=== PATIENT | male | born 1955 | race Caucasian/White ===

== ENCOUNTER → 2019-12-22 19:04 | Outpatient (BNVA) | payer MEDICARE, BC, SELFPAY | PROVIDERS: Family Provider Nurse Practitioner; PCP Nurse Practitioner; Visit Provider Nurse Practitioner Family | DX: Z20.828 Contact with and (suspected) exposure to other viral communicable diseases (principal) | CPT/HCPCS: 87635 ==

== ENCOUNTER → 2020-07-13 08:38 | Outpatient (BNVA) | payer MEDICARE, BC, SELFPAY | PROVIDERS: Family Provider Nurse Practitioner; PCP Nurse Practitioner; Visit Provider Nurse Practitioner Family | DX: R53.83 Other fatigue (principal); Z79.899 Other long term (current) drug therapy; N40.0 Benign prostatic hyperplasia without lower urinary tract symptoms; E55.9 Vitamin D deficiency, unspecified; Z00.00 Encounter for general adult medical examination without abnormal findings | CPT/HCPCS: 80053; 81003; 82306; 83036; 84443; 85025; G0103 ==

== ENCOUNTER → 2020-07-31 08:10 | Outpatient (BNVA) | payer MEDICARE, SELFPAY | PROVIDERS: Family Provider Nurse Practitioner; PCP Nurse Practitioner; Visit Provider Nurse Practitioner Family | DX: Z01.812 Encounter for preprocedural laboratory examination (principal); Z12.11 Encounter for screening for malignant neoplasm of colon; Z13.6 Encounter for screening for cardiovascular disorders; Z20.822 Contact with and (suspected) exposure to COVID-19 | CPT/HCPCS: 80061; 87635 ==

== ENCOUNTER 2020-08-03 08:30 | Day surgery (SDC) | payer MEDICARE, SELFPAY ==
[2020-08-01 11:40] VITALS: BMI 36.9
[2020-08-03 08:48] VITALS: BP 115/89; PULSE 86; RESP 16; TEMP 36.3; O2SAT 95
[2020-08-03] MEDS: sodium chloride 0.9% 1,000 ML 30 ML IV (09:02)
--- NOTE | 2020-08-03 09:04 | P.HP_ITS ---
Same Day Surgery H&P Indication for Procedure/HPI DATE OF PROCEDURE: August 03, 2020 CHIEF COMPLAINT/INDICATIONFOR SURGICAL PROCEDURE: Routine screening average risk. PREOP DIAGNOSIS: scr PLANNED PROCEDRUE: Operation Date: 08/03/20 09:30 Proposed Procedures p Colonoscopy G0121 Z12.11(Not Applicable) - Reinaldo Wilson MD Medications/Allergies* Home Medications Medication Instructions Recorded Confirmed Type aspirin 81 mg tablet,delayed 81 mg PO DAILY 12/22/19 08/03/20 History release cetirizine 10 mg capsule 10 mg PO DAILY PRN cap 12/22/19 08/03/20 History Allergies/Adverse Reactions Allergy/AdvReac Type Severity Reaction Status Date / Time No Known Allergies Allergy Verified 08/03/20 08:46 Current Medications: Generic Name Dose Route Start Last Admin Trade Name Freq PRN Reason Stop Dose Admin Sodium Chloride 1,000 mls @ 30 mls/hr 08/03/20 08:45 08/03/20 09:02 Sodium Chloride 0.9% IV 08/04/20 08:44 30 mls/hr .Q24H DIANE Administration Pertinent History/Comorbid Conditions* Medical History (Updated 07/12/20 @ 09:11 by SOSA Perera) BPH (benign prostatic hyperplasia) Colon cancer screening Fatigue History of diverticulitis Medication management Osteoarthritis (arthritis due to wear and tear of joints) Vitamin D deficiency Social History Smoking and tobacco status: former smoker Quit status (tobacco): has quit using tobacco Year quit tobacco: 20 years ago Alcohol intake: never Pertinent Exam Findings alert, oriented x 3, clear to auscultation bilaterally, regular rate & rhythm, operative site marked and procedure specific exam findings Recommendations Surgery/Procedure today Coding Level of Care Code 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
--- NOTE | 2020-08-03 09:36 | ANES.PREANE2 ---
Pre-Anesthetic Assessment Pre-Anesthetic Assessment: Height/Weight: Height 1.75 m Weight 113.398 kg Temp Pulse Resp BP Pulse Ox 97.4 F L 86 16 115/89 95 08/03/20 08:48 08/03/20 08:48 08/03/20 08:48 08/03/20 08:48 08/03/20 08:48 Preop Diagnosis: scr Proposed Procedure: Operation Date: 08/03/20 09:30 Proposed Procedures p Colonoscopy G0121 Z12.11(Not Applicable) - Reinaldo Wilson MD Familial anesthetic complications: none Was Beta Jean taken within 24 hours: N/A Was Clonidine taken within 24 hours: N/A Last intake: Intake Last Liquid Date 08/02/20 Last Liquid Time 23:30 Last Solid Date 08/08/20 Last Solid Time 18:00 Last Intake: 23:00 Social: Social History: No alcohol and No tobacco Exam: Pre-Anes Outpt Exam: alert and oriented x 3 Airway: Submandibular: WNL Cervical ROM: WNL MP: 2 History/ROS: No significant history except as noted GI: Comments: prostate Musc/skel: Musc/skel: OA/DJD Anesthetic Plan: ASA status: 2 Anesthesia: Anesthesia Evaluation and MAC Risk of > 500 ml blood loss (7ml/kg in children): No Meds/Allergies Current Medications: Current Medications Generic Name Dose Route Start Last Admin Trade Name Freq PRN Reason Stop Dose Admin Sodium Chloride 1,000 mls @ 30 ml s/hr 08/03/20 08:45 08/03/20 09:02 Sodium Chloride 0.9% IV 08/04/20 08:44 30 mls/hr .Q24H DIANE Administration PFSH Anesthesia PFSH: Medical History BPH (benign prostatic hyperplasia) Colon cancer screening Fatigue History of diverticulitis Medication management Osteoarthritis (arthritis due to wear and tear of joints) Vitamin D deficiency Social History Smoking and tobacco status: former smoker Quit status (tobacco): has quit using tobacco Year quit tobacco: 20 years ago Alcohol intake: never Data Anesthesia Cardiac Studies: No Data to Display
[2020-08-03 10:04] VITALS: BP 120/81; PULSE 82; RESP 18; TEMP 36.1; O2SAT 92
[2020-08-03 10:33] VITALS: BP 138/96; PULSE 76; RESP 18; O2SAT 93
--- NOTE | 2020-08-03 13:17 | ANE.PACU2 ---
Inpatient post-anesthesia follow up: Airway intact: Yes Vital signs: Temperature 97 F Pulse Rate 76 Respiratory Rate 18 Blood Pressure 138/96 Pulse Oximetry 93 Oxygen Delivery Me thod Room Air Oxygen Flow Rate Fraction of Inspir ed Oxygen Hydration adequate: Yes Nausea and vomiting: No Pain level: 1 Mental status: Baseline
== END 2020-08-03 10:35 | disposition home or self-care (01) ==
PROVIDERS: PCP Nurse Practitioner Family; Visit Provider Internal Medicine
PROC: 0DJD8ZZ Inspection of Lower Intestinal Tract, Via Natural or Artificial Opening Endoscopic (ICD-10-PCS; CPT 45378; principal; 2020-08-03 09:30)
DX: Z12.11 Encounter for screening for malignant neoplasm of colon (principal); K57.30 Diverticulosis of large intestine without perforation or abscess without bleeding; Z79.82 Long term (current) use of aspirin; N40.0 Benign prostatic hyperplasia without lower urinary tract symptoms; M19.90 Unspecified osteoarthritis, unspecified site; E55.9 Vitamin D deficiency, unspecified
CPT/HCPCS: 45378; 96360; 96361; J2704; J7030

== ENCOUNTER 2021-01-08 09:14 | Outpatient (CLI) | payer MEDICARE, BC, SELFPAY ==
[2021-01-08 09:52] VITALS: BMI 35.2
--- NOTE | 2021-01-08 10:00 | ECG_ITS ---
[facility] Test Date: 2021-01-08 Pat Name: Paul Gaytan Department: Room: Gender: Male Bill Cutter: : 1955 Requested By: JAMA Vann Order Number: [id number] Khoi MD: Mey Carey M.D. Interpretive Statements NAME OF STUDY: LEXISCAN SESTAMIBI STRESS TEST INDICATION: Chest Pain, PROCEDURE: At the baseline, the EKG revealed normal sinus rhythm with a rate of 65 bpm. Minimal left axis deviation. The baseline blood pressure was 117/95 mm Hg with a heart rate of 65 beats/min. Lexiscan was infused over a period of 20 seconds. A total of 0.4 milligrams of Lexiscan was infused. The stress phase was continued for a total of 5 minutes. Heart rate at the end of the stress phase was 77 with a blood pressure 124/81. The EKG at the peak infusion revealed no significant changes. Sestamibi was injected 20 seconds after the Lexiscan infusion. Blood pressure at the end of the recovery phase was 122/90 with a heart rate of 77 per minute. CONCLUSION: 1. No significant EKG changes with the LexiScan infusion 2. No LexiScan induced chest pain or cardiac arrhythmia 3. Normal blood pressure and heart rate response 4. Sestamibi/sestamibi perfusion scan pending; see separate report. Electronically Signed On 01-10-2021 23:19:50 CDT by Mey Carey M.D. [id number]
--- NOTE | 2021-01-08 10:01 | NMCV_ITS ---
NM mallory perf SPECT r/s* [id number] Paul Gaytan Age: 66 Gender: M : 1955 Exam Date: 01/08/2021 10:54 Ordering Phys: JAMA Vann APRN Technologist: EASTON Almeida Exam Location: [facility] Indications: CHEST PAIN STRESS TEST Please see separate stress test report in [facility] for full findings IMAGE PROTOCOL Rest/Stress 1 Lexiscan Day Radiopharmaceutical Dose (mCi) Administration Site Administered by Rest: Tc-99m 10.9 IV EASTON [place] Sestamibi Stress:Tc-99m 33.0 IV E[place] Sestamibi Rest: 08-Jan-2021 60 Discovery 630 Stress: 08-Jan-2021 30 Discovery 630 0.4mg Lexiscan. Images obtained in supine and prone position. SPECT RESULTS Technical Quality: Excellent Raw Data Analysis: Normal Image Corrections: No attenuation or motion correction applied Summed Stress Score: 7 Summed Rest Score: 3 Summed Difference Score: 5 PERFUSION FINDINGS Moderate area of decreased tracer uptake in the basal, mid and apical inferior wall region, with some reversibility. Small area of decreased tracer uptake also was noted in the mid inferoseptal region, with some reversibility. FUNCTIONAL RESULTS (calculated via Gated SPECT) Stress Image LV EF (%): 57 Stress EDV (mL):101 TID: 1.01 Stress ESV (mL):43 FUNCTIONAL FINDINGS: Segmental wall motion analysis revealing no gross wall motion normalities. IMPRESSIONS 1. Myocardial perfusion imaging revealing moderate area of decreases uptake in the inferior and inferoseptal region with some reversibility, suggestive of myocardial scarring with ischemia in distribution of the right coronary artery. 2. Normal LV ejection fraction 57%. 3. LV wall motion analysis revealing no gross wall motion abnormalities. 4. Normal LV volume No similar previous studies are available for comparison Dr Mey Carey MD [facility] (Electronically Signed) Final Date: 08 January 2021 17:46 S
[2021-01-08 11:42] VITALS: BP 122/90; PULSE 79
[2021-01-08] MEDS: regadenoson 0.4 Mg/5 ml Syringe IVP (11:42)
== END 2021-01-08 09:15 | disposition home or self-care (01) ==
LOC: CDL 09:15
PROVIDERS: PCP Nurse Practitioner Family; Visit Provider Nurse Practitioner Family
DX: R07.9 Chest pain, unspecified (principal)
CPT/HCPCS: 78452; 93017; A9500; J2785

== ENCOUNTER → 2021-02-04 09:00 | Outpatient (BNVA) | payer MEDICARE, BC, SELFPAY | PROVIDERS: PCP Nurse Practitioner Family; Visit Provider Nurse Practitioner Family | DX: M70.31 Other bursitis of elbow, right elbow (principal) | CPT/HCPCS: 73080 ==

== ENCOUNTER 2021-02-11 12:41 | Outpatient (CLI) | payer MEDICARE, BC, SELFPAY ==
--- NOTE | 2021-02-11 12:45 | USCV_ITS ---
Paul Gaytan Age: 66 Gender: M : 1955 Exam Date: 02/11/2021 13:20 Ordering Phys: JAMA Vann APRN MUSEUM EDUCATOR Technologist: CHUCKY Exam Location: [facility] [place] Indication: Chest Pain BP: 132 / 82 HR: 75 Rhythm: Sinus Technical Quality: Technically difficult study MEASUREMENTS (Male / Female) Normal Values 2D ECHO LV Diastolic Diameter PLAX 3.7 cm 4.2 - 5.9 / 3.9 - 5.3 cm LV Systolic Diameter PLAX 2.5 cm IVS Diastolic Thickness 1.3 cm 0.6 - 1.0 / 0.6 - 0.9 cm IVS Systolic Thickness 1.4 cm LVPW Diastolic Thickness 1.5 cm 0.6 - 1.0 / 0.6 - 0.9 cm LVPW Systolic Thickness 1.7 cm LVOT Diameter 2.0 cm LV Ejection Fraction 2D Teich 61.9 % LV Ejection Fraction MOD 2C 55.9 % LV Ejection Fraction 2C AL 59.7 % LA Diameter 3.1 cm LA Width 3.5 cm LA Height 4.3 cm RA Width 3.7 cm RA Height 4.9 cm Aorta at Sinotubular Diameter 2.7 cm M-MODE Aortic Annulus Diameter 3.6 cm LA Ao Ratio MM 0.9 MV E Point Septal Separation 0.9 cm DOPPLER AV Peak Velocity 130.0 cm/s LVOT Peak Velocity 96.0 cm/s AV Area Cont Eq vti 2.4 cm squared AV Area Cont Eq pk 2.3 cm squared MV Area PHT 4.2 cm squared Mitral E to A Ratio 1.0 MV E' Velocity 39.4 cm/s Mitral E to MV E' Ratio 9.9 Mitral E to LV E' Lateral Ratio 9.2 Mitral E to LV E' Septal Ratio 10.7 TV Peak E Velocity 49.0 cm/s Right Atrial Pressure 3.0 mmHg PV Peak Velocity 106.0 cm/s RV Acceleration Time 0.2 s RV Ejection Time 0.3 s RV AcT/ET 0.6 FINDINGS Left Ventricle Normal left ventricular cavity size. Normal left ventricular systolic function. No regional wall motion abnormalities. Left ventricular ejection fraction is estimated at 60 %. Grade I/IV diastolic dysfunction (abnormal relaxation filling pattern), normal to mildly elevated filling pressures. Right Ventricle The right ventricle is normal in size and function. RVSP could not be calculated due to incomplete tricuspid regurgitation velocity profile. Right Atrium The right atrium is normal in size. Left Atrium The left atrium is normal in size. Mitral Valve Structurally normal mitral valve without significant stenosis or prolapse. There is no mitral regurgitation. Aortic Valve Structurally normal aortic valve without significant sclerosis or stenosis. There is no aortic regurgitation. Tricuspid Valve Structurally normal tricuspid valve without significant stenosis or regurgitation. Pulmonic Valve Structurally normal pulmonic valve without significant stenosis. There is no pulmonic regurgitation. Pericardium Normal pericardium without effusion. Aorta Normal ascending aorta dimension. CONCLUSIONS 1-Normal left ventricular cavity size. Normal left ventricular systolic function. No regional wall motion abnormalities. Left ventricular ejection fraction is estimated at 60 %. Grade I/IV diastolic dysfunction (abnormal relaxation filling pattern), normal to mildly elevated filling pressures. 2-There is no pericardial effusion. 3-No significant valve abnormalities. 4-The right ventricle is normal in size and function. RVSP could not be calculated due to incomplete tricuspid regurgitation velocity profile. 5-Right atrial pressure is around 5 mm of mercury. 6-There are no prior echocardiogram studies to compare. Alondra Rocha MD (Electronically Signed) Final Date: 12 February 2021 16:50 S
== END 2021-02-11 12:42 | disposition home or self-care (01) ==
LOC: US 12:42
PROVIDERS: PCP Nurse Practitioner Family; Visit Provider Nurse Practitioner Family
DX: R07.9 Chest pain, unspecified (principal); I07.1 Rheumatic tricuspid insufficiency
CPT/HCPCS: 93306

== ENCOUNTER → 2021-05-21 14:45 | Outpatient (BNVA) | payer MEDICARE, BC, SELFPAY | PROVIDERS: PCP Nurse Practitioner Family; Visit Provider Internal Medicine Cardiovascular Disease | DX: K21.9 Gastro-esophageal reflux disease without esophagitis (principal); I10 Essential (primary) hypertension; R07.9 Chest pain, unspecified; I25.9 Chronic ischemic heart disease, unspecified | CPT/HCPCS: 99214 ==

== ENCOUNTER → 2021-06-03 08:52 | Outpatient (BNVA) | payer MEDICARE, BC, SELFPAY | PROVIDERS: PCP Nurse Practitioner Family; Visit Provider Internal Medicine Cardiovascular Disease | DX: I10 Essential (primary) hypertension (principal); R07.9 Chest pain, unspecified; R06.02 Shortness of breath | CPT/HCPCS: 80048; 83735; 83880 ==

== ENCOUNTER → 2021-08-27 09:59 | Outpatient (BNVA) | payer MEDICARE, BC, SELFPAY | PROVIDERS: PCP Nurse Practitioner Family; Visit Provider Internal Medicine Cardiovascular Disease | DX: I25.9 Chronic ischemic heart disease, unspecified (principal); I10 Essential (primary) hypertension; Z87.891 Personal history of nicotine dependence; E78.2 Mixed hyperlipidemia; R94.39 Abnormal result of other cardiovascular function study; N40.0 Benign prostatic hyperplasia without lower urinary tract symptoms | CPT/HCPCS: 99214 ==

== ENCOUNTER → 2022-02-28 08:26 | Outpatient (BNVA) | payer MEDICARE, BC, SELFPAY | PROVIDERS: PCP Nurse Practitioner Family; Visit Provider Nurse Practitioner Family | DX: I10 Essential (primary) hypertension (principal); R07.9 Chest pain, unspecified; R06.02 Shortness of breath; Z87.891 Personal history of nicotine dependence | CPT/HCPCS: 99214 ==

== ENCOUNTER → 2022-04-07 09:30 | Outpatient (BNVA) | payer MEDICARE, BC, SELFPAY | PROVIDERS: PCP Nurse Practitioner; Visit Provider Nurse Practitioner | DX: E78.2 Mixed hyperlipidemia (principal); I10 Essential (primary) hypertension; Z12.5 Encounter for screening for malignant neoplasm of prostate; I25.9 Chronic ischemic heart disease, unspecified | CPT/HCPCS: 80053; 80061; 84443; 85025; G0103 ==

== ENCOUNTER → 2022-05-05 15:30 | Outpatient (BNVA) | payer MEDICARE, BC, SELFPAY | PROVIDERS: PCP Nurse Practitioner; Visit Provider Nurse Practitioner | DX: M25.562 Pain in left knee (principal); Z79.899 Other long term (current) drug therapy | CPT/HCPCS: 84550 ==

== ENCOUNTER → 2022-05-26 11:36 | Outpatient (BNVA) | payer MEDICARE, BC, SELFPAY | PROVIDERS: PCP Nurse Practitioner; Visit Provider Nurse Practitioner | DX: M25.562 Pain in left knee (principal) | CPT/HCPCS: 73562 ==

== ENCOUNTER → 2022-11-13 08:44 | Outpatient (BNVA) | payer MEDICARE, BC, SELFPAY | PROVIDERS: PCP Nurse Practitioner; Visit Provider Nurse Practitioner | DX: R04.2 Hemoptysis (principal) | CPT/HCPCS: 71046; 85025; 87070; 87205 ==

== ENCOUNTER → 2022-11-18 14:13 | Outpatient (BNVA) | payer MEDICARE, BC, SELFPAY | PROVIDERS: PCP Nurse Practitioner; Visit Provider Nurse Practitioner Family | DX: C44.622 Squamous cell carcinoma of skin of right upper limb, including shoulder (principal); L81.4 Other melanin hyperpigmentation; D22.5 Melanocytic nevi of trunk; L57.0 Actinic keratosis; L57.8 Other skin changes due to chronic exposure to nonionizing radiation | CPT/HCPCS: 17000; 17003; 17271; 99213 ==

== ENCOUNTER → 2022-11-20 09:16 | Outpatient (BNVA) | payer MEDICARE, BC, SELFPAY | PROVIDERS: PCP Nurse Practitioner; Visit Provider Nurse Practitioner Family | DX: I10 Essential (primary) hypertension (principal); Z87.891 Personal history of nicotine dependence | CPT/HCPCS: 99213 ==

== ENCOUNTER 2022-12-03 09:16 | Outpatient (CLI) | payer MEDICARE, BC, SELFPAY ==
--- NOTE | 2022-12-03 09:30 | CT_ITS ---
WS: [id number] CT chest w con* [id number] HISTORY: Blood in sputum, since resolved. Cough and short of breath. TECHNIQUE: Axial imaging performed through the thorax. Coronal and sagittal reformats are submitted. All CT scans at [facility] use at least one of these dose optimization techniques: automated exposure control; mA and/or kV adjustment per patient size (includes targeted exams where dose is mat ched to clinical indication); or iterative reconstruction. CONTRAST: Omnipaque 350; 100 mL IV. DLP: 733.12 mGy.cm COMPARISON: None available. Lungs and central airway: Mild hyperexpansion and chronic emphysema. Benign calcified granuloma RIGHT upper lobe. Pleura: Normal. No pleural effusion. Heart and pericardium: Normal size heart with no pericardial effusion. Mediastinum and mona: Extensive mediastinal and hilar calcified lymphadenopathy. Most likely from arelis or granulomatous disease. Vessels: Mild atherosclerosis aorta. No aneurysm. There is a filling defect in a segmental branch RIG HT lower lobe pulmonary artery. Additional very tiny filling defects in segmental branches of the LEF T lower lobe. Chest wall and lower neck: No soft tissue masses. Upper abdomen: Small hiatal hernia. Splenic and hepatic granulomatous. There are several small indete rminate lymph nodes in the upper abdomen surrounding the celiac axis. Some of these contain calcifica tions and these may be related to prior granulomatous disease. Cholelithiasis without acute cholecyst itis. Osseous structures: Mild anterior wedging of T6. IMPRESSION: 1. No pulmonary mass or pneumonia. 2. Bilateral lower lobe pulmonary emboli. 3. Chronic emphysema. 4. Cholelithiasis without acute cholecystitis. 5. Extensive mediastinal and hilar adenopathy. Lymph nodes are calcified. Probably from prior granulo matous disease. Smaller indeterminate lymph nodes in the upper abdomen. Some of these lymph nodes als o contain calcification. These may be post granulomatous in etiology also. Notified SOSA Guerra at 12/03/2022 12:19 PM.
[2022-12-03 10:11] LABS: Blood Urea Nitrogen 20 mg/dL (8-23); Glomerular Filtration Rate 74.5 mL/min (90-130)
[2022-12-03] MEDS: iohexol 350 mg/mL 500 mL Btl (per mL) IV (10:23)
== END 2022-12-03 09:17 | disposition home or self-care (01) ==
PROVIDERS: PCP Nurse Practitioner; Visit Provider Nurse Practitioner
DX: I26.99 Other pulmonary embolism without acute cor pulmonale (principal); R04.2 Hemoptysis; J43.9 Emphysema, unspecified; K80.20 Calculus of gallbladder without cholecystitis without obstruction; R59.0 Localized enlarged lymph nodes
CPT/HCPCS: 71260; 82565; 84520; Q9967

== ENCOUNTER 2022-12-03 13:33 | Emergency (ER) | payer MEDICARE, BC, SELFPAY ==
[2022-12-03 13:43] VITALS: BP 148/75; PULSE 76; RESP 16; TEMP 36.4; O2SAT 96; BMI 35.2
[2022-12-03 14:17] VITALS: BP 119/82; PULSE 73; RESP 16; O2SAT 93
--- NOTE | 2022-12-03 14:36 | XR_ITS ---
WS: [id number] Exam: XR chest 1V portable [id number] Date/Time of Exam: 12/03/2022 2:37 PM Reason For Exam: sob Comparison 11/13/2022. The lungs are fully expanded and clear. Chronic interstitial changes. Calcified granulomas noted bila terally. Heart size is normal. The mediastinum is not widened. Bony structures are intact. No pleural effusion. IMPRESSION: 1. No acute finding. No change.
--- NOTE | 2022-12-03 14:45 | W.ED.SOB ---
HPI - SOB/Dyspnea General: Chief Complaint: Shortness of Breath/Dyspnea Stated Complaint: sent by pcp due to ct report Time Seen by Provider: 12/03/22 14:01 History of Present Illness: HPI Narrative: 67-year-old male presents emergency department chief complaint of having shortness of breath and hemoptysis. 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 He has made mention this to his primary care doctor in which additional work-up is come back inconclusive. Patient does not endorse any recent swelling in his legs he does report having some left upper side pain that has been ongoing for last couple of weeks he does not endorse any recent trauma or injury patient reports no other associated symptoms. Associated symptoms: Reports palpitations (Intermittent vibratory sensation); Deny abdominal pain, chest pain, extremity pain, fever(s), nausea or vomiting Review of Systems General: Reports: 10 or more systems reviewed and unremarkable except in HPI and below Const: Denies: fever(s), chills, fatigue or malaise Eyes: Denies: change in vision or blurry vision Card: Reports: palpitations (Intermittent vibratory sensation); Denies: chest pain Resp: Reports: dyspnea; Denies: productive cough GI: Denies: abdominal pain, nausea or vomiting : Denies: flank pain Musc: Denies: extremity pain or extremity swelling Skin/Breast: Denies: rash or pruritus Neuro: Denies: headache(s) Psych: Denies: anxiety or depression South/Lymph: Denies: easy bleeding All/Imm: Denies: urticaria, throat swelling or facial swelling PFSH ED PFSH: Medical History Abnormal stress test Acute bacterial sinusitis Acute bilateral otitis media Acute lower respiratory tract infection BPH (benign prostatic hyperplasia) Bursitis of elbow Chest pain Colon cancer screening Exertional shortness of breath Fatigue History of diverticulitis History of skin cancer HTN (hypertension) with goal to be determined Medication management Mild acid reflux Mixed hyperlipidemia Osteoarthritis (arthritis due to wear and tear of joints) Otitis media of both ears Tick fever Vitamin D deficiency Social History Smoking and tobacco status: former smoker Quit status (tobacco): has quit using tobacco Year quit tobacco: 20 years ago Alcohol intake: never Substance/Drug Use: never Physical Exam Const: COMMON NORMALS: no acute distress, patient oriented x3 and healthy appearing HENMT: COMMON NORMALS: normocephalic and atraumatic HEAD & SCALP: normocephalic and atraumatic Eye: COMMON NORMALS: Equal, round and reactive pupils present and EOMs intact bilaterally PUPIL: Yes Equal, round and reactive pupils present Neck/C-Spine: COMMON NORMALS: full ROM, supple and no JVD Lymph: LYMPHATIC: no lymphadenopathy noted Chest: COMMONS NORMALS: normal inspection of the chest and normal palpation of entire chest wall Resp: COMMON NORMALS: normal respiratory effort, No retractions and clear to auscultation bilaterally EFFORT & INSPECTION: Yes able to speak in complete sentences and Yes symmetric chest movement AUSCULTATION: clear to auscultation bilaterally Cardio: COMMON NORMALS: no JVD, regular rate and regular rhythm RATE: regular rate RHYTHM: regular rhythm GI: COMMON NORMALS: Normal to inspection, nondistended, normoactive bowel sounds present, Soft to palpation and non-tender INSPECTION: Yes normal to inspection PALPATION: Yes Soft to palpation : COMMON NORMALS: Yes no CVA tenderness BLADDER/KIDNEY EXAM: Yes no CVA tenderness Back/Pelvis: COMMON NORMALS: no CVA tenderness Extremity: COMMON NORMALS: normal to inspection and full ROM Neuro: COMMON NORMALS: patient oriented x3, CN's II-XII intact bilaterally, moves all extremities and no focal motor deficits Psych: COMMON NORMALS: mental status grossly normal, Normal thought process present, cooperative and normal affect THOUGHT PROCESS: Normal thought process present Skin: COMMON NORMALS: no rashes or lesions noted GENERAL SKIN EXAM: no rashes or lesions noted Course Vital Signs: Vital signs: Vital Signs Temperature 97.6 F 12/03/22 13:43 Pulse Rate 60 12/03/22 18:00 Respiratory Rate 22 H 12/03/22 18:00 Blood Pressure 137/87 12/03/22 18:00 Pulse Oximetry 94 12/03/22 18:00 MDM - SOB/Dyspnea Medical Decision Making Due to patient's symptoms and condition lab work and imaging will be obtained reviewed the patient previous CT reveals that the patient does have bilateral peripheral bilateral peripheral PEs.We will do a basic cardiopulmonary work-up will continue to follow no obvious signs suggestive of heart strain or is noted on the CT imaging we will do additional cardiac work-up with troponins anticipate discharge home with Khoi pending labs discussed the patient's case with Dr. Gonzalez hospitalist The recommends additional cancer work-up prior to subsequent discharge patient has no obvious findings suggestive of right heart strain negative troponin is negative BNP which does not require any additional oxygen will be started the patient on Eliquis 10 mg to be started over the next 1 week in which patient thereafter will be on 5 mg was recommended the patient further follow-up with Dr. Maynard on-call for hematology for further evaluation of his hypercoagulability state. 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 Andrews at [address] imaging to result anticipate discharge home pending after results Lab Data 12/03/22 15:00 12/03/22 15:00 Labs/Radiology: Laboratory Results WBC 6.73 10^3/uL (3.29-11.43) 12/03/22 15:00 RBC 5.58 10^6/uL (3.85-5.65) 12/03/22 15:00 Hgb 16.60 g/dL (11.27-16.99) 12/03/22 15:00 Hct 49.5 % (37-53) 12/03/22 15:00 MCV 88.7 fl (82-101) 12/03/22 15:00 MCH 29.7 pg (27-33) 12/03/22 15:00 MCHC 33.5 g/dL (30-55) 12/03/22 15:00 RDW 13.2 % (12.1-15.1) 12/03/22 15:00 Plt Count 177 10^3/cmm (157-399) 12/03/22 15:00 MPV 9.7 fL (7.4-10.4) 12/03/22 15:00 Neut % (Auto) 56.2 % 12/03/22 15:00 Lymph % (Auto) 20.4 % 12/03/22 15:00 Dillon % (Auto) 10.4 % 12/03/22 15:00 Eos % (Auto) 10.3 % 12/03/22 15:00 Baso % (Auto) 1.2 % 12/03/22 15:00 Neut # (Auto) 3.79 10^3/uL (1.8-7.7) 12/03/22 15:00 Lymph # (Auto) 1.4 10^3/uL (0.8-4.8) 12/03/22 15:00 Dillon # (Auto) 0.7 10^3/uL (0.2-0.9) 12/03/22 15:00 Eos # (Auto) 0.7 10^3/uL (0.0-0.8) 12/03/22 15:00 Baso # (Auto) 0.1 10^3/uL (0.0-0.1) 12/03/22 15:00 Nucleated RBC % (auto) 0 % 12/03/22 15:00 Nucleated RBCs # 0.0 /100WBC 12/03/22 15:00 PT 13.00 SECONDS (12.1-14.9) 12/03/22 15:00 INR 0.95 (0.8-1.2) 12/03/22 15:00 APTT 25.0 SECONDS (23.9-36.7) 12/03/22 15:00 Sodium 138 mmol/L (136-145) 12/03/22 15:00 Potassium 3.7 mmol/L (3.5-5.1) 12/03/22 15:00 Chloride 100 mmol/L (98-107) 12/03/22 15:00 Carbon Dioxide 29 mmol/L (22-29) 12/03/22 15:00 Anion Gap 12.7 (5-19) 12/03/22 15:00 BUN 22 mg/dL (8-23) 12/03/22 15:00 Creatinine 0.9 mg/dL (0.7-1.2) 12/03/22 15:00 GFR Calculation 84.2 mL/min (90-130) L 12/03/22 15:00 Glucose 96 mg/dL (65-115) 12/03/22 15:00 Calculated Osmolality 289 mOsm/kg (285-295) 12/03/22 15:00 Calcium 9.3 mg/dL (8.5-10.5) 12/03/22 15:00 Total Bilirubin 0.6 mg/dL (0.15-1.2) 12/03/22 15:00 AST 16 U/L (0-40) 12/03/22 15:00 ALT 20 U/L (0-41) 12/03/22 15:00 Alkaline Phosphatase 109 U/L (40-130) 12/03/22 15:00 Troponin T Baseline 10 ng/L (0-15) 12/03/22 15:00 Troponin T 120 Minute 9.46 ng/L (0-15) 12/03/22 17:15 Delta Troponin T -0.54 ABS# (0-10) L 12/03/22 17:15 C-Reactive Protein 4.6 mg/L (0.0-4.9) 12/03/22 15:00 C-React Prot High Sens 0.470 mg/dL (0.0-0.3) H 12/03/22 15:00 NT-Pro-B Natriuret Pep 36 pg/mL (0-125) 12/03/22 15:00 Total Protein 7.0 g/dL (6.6-8.7) 12/03/22 15:00 Albumin 4.4 g/dL (3.5-5.2) 12/03/22 15:00 Globulin 2.6 g/dL (1.3-4.6) 12/03/22 15:00 Discharge Plan Discharge Patient Disposition: Home Clinical Impression: Bilateral pulmonary embolism Condition: Stable Prescriptions: New Eliquis 5 mg tablet 10 mg PO BID Qty: 26 0RF Eliquis 5 mg tablet 5 mg PO BID Qty: 60 0RF No Action aspirin [Adult Aspirin Regimen] 81 mg tablet,delayed release (DR/EC) 81 mg PO DAILY acetaminophen 325 mg capsule 325 mg PO QID PRN (Reason: Pain) diclofenac sodium [Voltaren Arthritis Pain] 1 % gel 2 g topical QID PRN (Reason: Pain) Rx Instructions: apply to area of pain loratadine [Claritin] 10 mg tablet 10 mg PO DAILY PRN (Reason: allergic symptoms) Rx Instructions: for allergies and ear congestion tamsulosin 0.4 mg capsule 0.4 mg PO DAILY PRN (Reason: URINE FLOW) Dose Instruction: TAKE ONE CAPSULE BY MOUTH DAILY nitroglycerin 0.4 mg tablet, sublingual 0.4 mg sublingual Q5M PRN (Reason: chest pain) Qty: 30 4RF Rx Instructions: until response; do not exceed 3 doses per episode fluticasone propionate [Flonase Allergy Relief] 50 mcg/actuation spray,suspension 2 spray intranasal DAILY Qty: 16 0RF Rx Instructions: administer into each nostril metoprolol succinate 25 mg tablet extended release 24 hr 25 mg PO DAILY Qty: 90 3RF hydrochlorothiazide 25 mg tablet 25 mg PO DAILY Qty: 90 2RF isosorbide mononitrate 30 mg tablet extended release 24 hr 30 mg PO BID Qty: 180 3RF meloxicam 15 mg tablet 15 mg PO DAILY Discharge Orders: Discharge ED (Routine); Ordered 12/03/22 Ordered By: Chilo Lopez Referrals: Gabriella Cutler FNP [Primary Care Provider] - 7-10 days (For further assessment and management of need for event monitor or telemetry monitor) Elikn Maynard MD [Hospitalist] - 4-7 days (For further assessment management of your hypercoagulable state that has created you to have blood clots in your lungs) Discharge Diet: Advance as tolerated Discharge Activity: Increase activity as tolerated Patient Instructions: Pulmonary Embolism (ED), Coughing Up Blood (Hemoptysis) (ED) Activity Restrictions/Additional Instructions: Please further follow-up with the provided tube drawing supervisor as well as your primary care doctor for further assessment management, please take medications as prescribed and please return in the interim if any of your symptoms persist or worse. 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
--- NOTE | 2022-12-03 14:51 | ECG_ITS ---
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 Measurements Intervals [place] Rate: 67 P: 12 WV: 170 QRS: -33 QRSD: 94 T: 50 QT: 391 QTc: 413 Interpretive Statements SINUS RHYTHM INDETERMINATE AXIS INCOMPLETE RIGHT BUNDLE BRANCH BLOCK [90+ ms QRS DURATION, TERMINAL R IN V1/V2, 40+ ms S IN I/aVL/V4/V5/V6] No previous ECG available for comparison Electronically Signed On 12-03-2022 15:39:40 CDT by Deana Pelayo M.D. [id number]
[2022-12-03] MEDS: sodium chloride 0.9% 500 ML IV (14:53)
[2022-12-03 15:30] VITALS: BP 117/84; PULSE 65; O2SAT 95
[2022-12-03 15:41] LABS: Basophils # 0.1 10^3/uL (0.0-0.1); Basophils % 1.2 %; Eosinophils # 0.7 10^3/uL (0.0-0.8); Eosinophils % 10.3 %; Hematocrit 49.5 % (37-53); Lymphocytes # 1.4 10^3/uL (0.8-4.8); Lymphocytes % 20.4 %; Mean Corpuscular HGB Conc 33.5 g/dL (30-55); Mean Corpuscular Hemoglobin 29.7 pg (27-33); Mean Corpuscular Volume 88.7 fl (82-101); Mean Platelet Volume 9.7 fL (7.4-10.4); Monocytes # 0.7 10^3/uL (0.2-0.9); Monocytes % 10.4 %; Neutrophils # 3.79 10^3/uL (1.8-7.7); Neutrophils % 56.2 %; Nucleated Red Blood Cells % 0 %; Platelet Count 177 10^3/cmm (157-399); Red Blood Count 5.58 10^6/uL (3.85-5.65); Red Cell Distribution Width 13.2 % (12.1-15.1); White Blood Count 6.73 10^3/uL (3.29-11.43)
[2022-12-03 15:55] LABS: INR 0.95 (0.8-1.2)
[2022-12-03 16:02] LABS: Troponin(5th) Baseline 10 ng/L (0-15)
[2022-12-03 16:12] LABS: Alanine Aminotransferase 20 U/L (0-41); Albumin Level 4.4 g/dL (3.5-5.2); Alkaline Phosphatase 109 U/L (40-130); Anion Gap 12.7 (5-19); Aspartate Amino Transferase 16 U/L (0-40); Blood Urea Nitrogen 22 mg/dL (8-23); C Reactive Protein 4.6 mg/L (0.0-4.9); Calcium 9.3 mg/dL (8.5-10.5); Carbon Dioxide 29 mmol/L (22-29); Chloride 100 mmol/L (98-107); Globulin 2.6 g/dL (1.3-4.6); Glomerular Filtration Rate 84.2 mL/min (90-130); Glucose 96 mg/dL (65-115); NT Pro B Type Natriuretic Pept 36 pg/mL (0-125); Osmolality Calculated 289 mOsm/kg (285-295); Potassium 3.7 mmol/L (3.5-5.1); Sodium 138 mmol/L (136-145); Total Bilirubin 0.6 mg/dL (0.15-1.2)
--- NOTE | 2022-12-03 16:34 | CTR_ITS ---
PROCEDURE INFORMATION: Exam: CT Abdomen And Pelvis With Contrast Exam date and time: 12/03/2022 5:30 PM Age: 67 years old Clinical indication: Other: CA workup for pe's TECHNIQUE: Imaging protocol: Computed tomography of the abdomen and pelvis with contrast. Radiation optimization: All CT scans at this facility use at least one of these dose optimization techniques: automated exposure control; mA and/or kV adjustment per patient size (includes targeted exams where dose is matched to clinical indication); or iterative reconstruction. Contrast material: OMNI 350; Contrast volume: 100 ml; Contrast route: INTRAVENOUS (IV); REPORTING DATA: Count of CT and Cardiac NM exams in prior 12 months: This patient has received 0 known CTs and 0 known cardiac nuclear medicine studies in the 12 months prior to the current study. COMPARISON: CT chest w con* [id number] 12/03/2022 10:15 AM RADIATION DOSE METRICS: Total DLP (mGy-cm): 1088 FINDINGS: Liver: A few calcified granulomas noted in the liver. No mass. Gallbladder and bile ducts: Cholelithiasis. No ductal dilation. Pancreas: Normal. No ductal dilation. Spleen: Calcified granulomas noted in the spleen. No splenomegaly. Adrenal glands: Normal. No mass. Kidneys and ureters: 1.6 cm cyst noted in the right kidney. No hydronephrosis. Stomach and bowel: Colonic diverticulosis. No obstruction. No mucosal thickening. Appendix: No evidence of appendicitis. Intraperitoneal space: Unremarkable. No free air. No significant fluid collection. Vasculature: Infrarenal abdominal aortic aneurysm measuring 3 cm. Aneurysmal dilation of the right common iliac artery up to 2.7 cm. Lymph nodes: Unremarkable. No enlarged lymph nodes. Urinary bladder: Unremarkable as visualized. Reproductive: Unremarkable as visualized. Bones/joints: No acute fracture. Soft tissues: Unremarkable. CT/CT abdomen pelvis w con* [id number] IMPRESSION: 1. No evidence of malignancy/metastatic disease in the abdomen/pelvis. 2. Infrarenal abdominal aortic aneurysm measuring 3 cm. 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 3. Cholelithiasis. COMMENTS: Consistent with the [employer] [employer]'s Incidental Findings Committee white paper (J Am Kena Radiol 2018): Any incidental renal lesion less than 1 cm or classified as too small to characterize, or any incidental cystic renal lesion characterized as simple-appearing, is likely benign. No follow-up imaging is recommended for these lesions per consensus recommendations based on imaging criteria.
[2022-12-03 17:00] VITALS: BP 128/88; PULSE 67; O2SAT 93
[2022-12-03] MEDS: iohexol 350 mg/mL 500 mL Btl (per mL) IV (17:38)
[2022-12-03] MEDS: apixaban 5 mg Tablet 10 MG PO (17:43)
[2022-12-03 17:58] LABS: Troponin 5 2HR 9.46 ng/L (0-15); Troponin 5 2HR Delta -0.54 ABS# (0-10)
[2022-12-03 18:00] VITALS: BP 137/87; PULSE 60; RESP 22; O2SAT 94
[2022-12-03 18:44] VITALS: PULSE 64; O2SAT 94
--- NOTE | 2022-12-04 14:32 | DCPLANNER ---
dot compliance manager had a message to schedule a follow up appointment for patient with Dr. Maynard. dot compliance manager sent patients information to the cancer treatment center. Patients information will be reviewed, clinic will call patient with appointment information.
== END 2022-12-03 18:45 | disposition home or self-care (01) ==
PROVIDERS: Emergency Provider Emergency Medicine; PCP Nurse Practitioner
DX: I26.99 Other pulmonary embolism without acute cor pulmonale (principal); Z79.82 Long term (current) use of aspirin; Z87.891 Personal history of nicotine dependence; I10 Essential (primary) hypertension; E78.2 Mixed hyperlipidemia; R04.2 Hemoptysis; J43.9 Emphysema, unspecified; K80.20 Calculus of gallbladder without cholecystitis without obstruction; R59.0 Localized enlarged lymph nodes
CPT/HCPCS: 36415; 71045; 71260; 74177; 80053; 82565; 83880; 84484; 84520; 85025; 85610; 85730; 86140; 86141; 93005; 96360; 99285; J7040; Q9967

== ENCOUNTER 2022-12-17 13:15 | Oncology outpatient (recurring) (ONCR) | payer MEDICARE, BC, SELFPAY ==
[2022-12-17 15:36] LABS: D Dimer 0.59 ug/mLFEU (0-0.59)
[2022-12-19 20:00] LABS: PTT-LA-Screen 35 sec (< OR = 40)
[2022-12-25 11:59] LABS: Factor 5 Leiden Mutation NEGATIVE
[2022-12-27 02:14] LABS: PROTHROMBIN (FACTOR II) 20210G NEGATIVE
== END 2022-12-20 23:59 | disposition home or self-care (01) ==
PROVIDERS: PCP Nurse Practitioner; Visit Provider Internal Medicine Medical Oncology
DX: I26.99 Other pulmonary embolism without acute cor pulmonale (principal); D68.59 Other primary thrombophilia; J84.10 Pulmonary fibrosis, unspecified; Z79.899 Other long term (current) drug therapy; Z53.9 Procedure and treatment not carried out, unspecified reason
CPT/HCPCS: 36415; 81241; 85210; 85378; 85613; 85730; 99205

== ENCOUNTER 2023-01-02 08:04 | Outpatient (CLI) | payer MEDICARE, BC, SELFPAY ==
--- NOTE | 2023-01-02 08:30 | USCV_ITS ---
LE Venous Duplex RIGHT Paul Gaytan Age: 67 Gender: M : 1955 Exam Date: 01/02/2023 08:31 Ordering Phys: Darell Last MD Technologist: CT Exam Location: [facility] [place]_ Indication: pe PROCEDURES: Venous duplex imaging was performed in only the right lower extremity. On the right side, the common femoral, superficial femoral, profunda femoral, popliteal, posterior tibial, greater saphenous veins and the peroneal trunk were identified and interrogated in the standard fashion. FINDINGS: Normal 2-D Doppler and augmentation and compressibility throughout the lower extremity venous structures. Additional imaging through the proximal calf veins also reveals no thrombus. Limited evaluation of the greater saphenous vein is patent with no thrombus. CONCLUSIONS No DVT right lower extremity. Dr. Kira White DO (Electronically Signed) Final Date: 02 January 2023 12:07 S
== END 2023-01-02 08:05 | disposition home or self-care (01) ==
LOC: RAD 08:07
PROVIDERS: PCP Nurse Practitioner; Visit Provider Internal Medicine Medical Oncology
DX: I26.99 Other pulmonary embolism without acute cor pulmonale (principal)
CPT/HCPCS: 93970

== ENCOUNTER 2023-01-28 13:47 | Oncology outpatient (recurring) (ONCR) | payer MEDICARE, BC, SELFPAY | END 2023-02-19 23:59 | disposition home or self-care (01) | PROVIDERS: PCP Nurse Practitioner; Visit Provider Internal Medicine Medical Oncology | DX: I26.99 Other pulmonary embolism without acute cor pulmonale (principal); J84.10 Pulmonary fibrosis, unspecified; Z79.899 Other long term (current) drug therapy | CPT/HCPCS: 99213 ==

== ENCOUNTER → 2023-02-19 09:49 | Outpatient (BNVA) | payer MEDICARE, BC, SELFPAY | PROVIDERS: PCP Nurse Practitioner; Visit Provider Internal Medicine Cardiovascular Disease | DX: I26.99 Other pulmonary embolism without acute cor pulmonale (principal); I10 Essential (primary) hypertension; R94.39 Abnormal result of other cardiovascular function study; Z87.891 Personal history of nicotine dependence; Z79.01 Long term (current) use of anticoagulants | CPT/HCPCS: 99214 ==

== ENCOUNTER → 2023-04-02 08:19 | Outpatient (BNVA) | payer MEDICARE, BC, SELFPAY | PROVIDERS: PCP Nurse Practitioner Family; Visit Provider Nurse Practitioner Family | DX: I10 Essential (primary) hypertension (principal); E78.2 Mixed hyperlipidemia; E55.9 Vitamin D deficiency, unspecified; Z12.5 Encounter for screening for malignant neoplasm of prostate; Z79.899 Other long term (current) drug therapy | CPT/HCPCS: 80053; 80061; 81003; 82306; 83036; 84443; 85025; G0103 ==

== ENCOUNTER → 2023-04-09 08:41 | Outpatient (BNVA) | payer MEDICARE, BC, SELFPAY | PROVIDERS: PCP Nurse Practitioner Family; Visit Provider Internal Medicine Pulmonary Disease | DX: J98.4 Other disorders of lung (principal); I26.99 Other pulmonary embolism without acute cor pulmonale; Z87.891 Personal history of nicotine dependence | CPT/HCPCS: 99204 ==

== ENCOUNTER 2023-04-28 06:56 | Outpatient (CLI) | payer MEDICARE, BC, SELFPAY ==
[2023-04-28 07:17] VITALS: PULSE 81; RESP 18; O2SAT 95
[2023-04-28] MEDS: albuterol 2.5 mg/3 mL Neb INHALATION (07:17)
[2023-04-28 07:22] VITALS: PULSE 76
== END 2023-04-28 06:57 | disposition home or self-care (01) ==
PROVIDERS: PCP Nurse Practitioner Family; Visit Provider Internal Medicine Pulmonary Disease
DX: R06.02 Shortness of breath (principal); Z87.891 Personal history of nicotine dependence; R94.2 Abnormal results of pulmonary function studies
CPT/HCPCS: 94060; 94618; 94726; 94729; J7613

== ENCOUNTER 2023-04-30 11:44 | Oncology outpatient (recurring) (ONCR) | payer MEDICARE, BC, SELFPAY ==
[2023-04-30 12:10] LABS: Basophils # 0.1 10^3/uL (0.0-0.1); Basophils % 0.8 %; Eosinophils # 0.2 10^3/uL (0.0-0.8); Eosinophils % 4.1 %; Hematocrit 49.5 % (37-53); Lymphocytes # 1.3 10^3/uL (0.8-4.8); Lymphocytes % 21.7 %; Mean Corpuscular HGB Conc 33.9 g/dL (30-55); Mean Corpuscular Hemoglobin 29.4 pg (27-33); Mean Corpuscular Volume 86.5 fl (82-101); Mean Platelet Volume 9.1 fL (7.4-10.4); Monocytes # 0.6 10^3/uL (0.2-0.9); Neutrophils # 3.69 10^3/uL (1.8-7.7); Neutrophils % 62.7 %; Nucleated Red Blood Cells % 0 %; Platelet Count 212 10^3/cmm (157-399); Red Blood Count 5.72 10^6/uL (3.85-5.65); Red Cell Distribution Width 13.5 % (12.1-15.1); White Blood Count 5.89 10^3/uL (3.29-11.43)
[2023-04-30 12:31] LABS: Alanine Aminotransferase 19 U/L (0-41); Albumin Level 3.9 g/dL (3.5-5.2); Alkaline Phosphatase 106 U/L (40-130); Aspartate Amino Transferase 18 U/L (0-40); Blood Urea Nitrogen 24 mg/dL (8-23); Calcium 9.3 mg/dL (8.5-10.5); Carbon Dioxide 27 mmol/L (22-29); Chloride 102 mmol/L (98-107); Globulin 2.8 g/dL (1.3-4.6); Glomerular Filtration Rate 66.6 mL/min (90-130); Glucose 139 mg/dL (65-115); Osmolality Calculated 294 mOsm/kg (285-295); Sodium 139 mmol/L (136-145); Total Bilirubin 0.5 mg/dL (0.15-1.2); Total Protein 6.7 g/dL (6.6-8.7)
[2023-04-30 12:38] LABS: Anion Gap 13.8 (5-19); Potassium 3.8 mmol/L (3.5-5.1)
== END 2023-05-21 23:59 | disposition home or self-care (01) ==
LOC: ONCMED 11:44
PROVIDERS: Nurse Practitioner Family; PCP Nurse Practitioner Family; Visit Provider Internal Medicine Medical Oncology
DX: I26.99 Other pulmonary embolism without acute cor pulmonale (principal); J84.10 Pulmonary fibrosis, unspecified; Z79.899 Other long term (current) drug therapy; Z79.01 Long term (current) use of anticoagulants; Z87.891 Personal history of nicotine dependence
CPT/HCPCS: 36415; 80053; 85025; 99213

== ENCOUNTER → 2023-05-28 09:59 | Outpatient (BNVA) | payer MEDICARE, BC, SELFPAY | PROVIDERS: PCP Nurse Practitioner Family; Visit Provider Internal Medicine Cardiovascular Disease | DX: I26.99 Other pulmonary embolism without acute cor pulmonale (principal); R06.09 Other forms of dyspnea; R94.39 Abnormal result of other cardiovascular function study; E78.2 Mixed hyperlipidemia; I10 Essential (primary) hypertension; Z87.891 Personal history of nicotine dependence; Z79.01 Long term (current) use of anticoagulants | CPT/HCPCS: 99214 ==

== ENCOUNTER 2023-06-16 08:24 | Outpatient (CLI) | payer MEDICARE, BC, SELFPAY ==
--- NOTE | 2023-06-16 08:45 | USCV_ITS ---
Paul Gaytan Age: 68 Gender: M : 1955 Exam Date: 06/16/2023 08:39 Ordering Phys: Mey Carey MD ([email or web address]) Technologist: APRIL Exam Location: [facility] [place] Indication: F/U on recent PE BP: / HR: 44 Rhythm: Sinus Technical Quality: Adequate MEASUREMENTS (Male / Female) Normal Values 2D ECHO LV Diastolic Diameter PLAX 4.3 cm 4.2 - 5.9 / 3.9 - 5.3 cm IVS Diastolic Thickness 1.4 cm 0.6 - 1.0 / 0.6 - 0.9 cm IVS Systolic Thickness 1.9 cm LVPW Diastolic Thickness 1.5 cm 0.6 - 1.0 / 0.6 - 0.9 cm LVPW Systolic Thickness 2.1 cm LVOT Diameter 2.0 cm LV Ejection Fraction 2D Teich 62.1 % LV Ejection Fraction MOD 2C 59.4 % LV Ejection Fraction 2C AL 60.0 % LA Diameter 3.4 cm Aorta at Sinotubular Diameter 3.2 cm IVC Diameter 1.4 cm M-MODE LA Ao Ratio MM 0.6 AV Cusp Separation MM 4.2 cm DOPPLER AV Peak Velocity 132.0 cm/s LVOT Peak Velocity 92.0 cm/s AV Area Cont Eq vti 2.7 cm squared AV Area Cont Eq pk 2.3 cm squared MV Peak Velocity 73.0 cm/s MV Area PHT 2.5 cm squared Mitral E to A Ratio 0.6 TV Peak Velocity 184.0 cm/s TR Peak Velocity 239.0 cm/s TR Peak Gradient 22.8 mmHg TR Mean Velocity 186.0 cm/s TR Mean Gradient 15.6 mmHg TR Velocity Time Integral 84.4 cm TV Peak E Velocity 60.0 cm/s Right Atrial Pressure 3.0 mmHg Pulmonary Artery Systolic Pressu 25.8 mmHg PV Peak Velocity 105.0 cm/s RV Ejection Time 0.3 s FINDINGS Left Ventricle Normal left ventricular size and systolic function, EF 59%. Mild to moderate concentric left ventricular hypertrophy.Grade I/IV diastolic dysfunction (abnormal relaxation filling pattern), normal to mildly elevated filling pressures. Right Ventricle The right ventricle is normal in size and function. Right Atrium The right atrium is normal in size. Left Atrium Mildly increased left atrial size. Mitral Valve Trace mitral valve regurgitation. Aortic Valve No gross abnormalities noted Tricuspid Valve Trace tricuspid valve regurgitation. Estimated pulmonary artery peak systolic pressure 26 mmHg Pulmonic Valve No gross abnormalities noted Pericardium Normal pericardium without effusion. Aorta Normal aortic annulus size. IVC Normal inferior vena cava. CONCLUSIONS Normal left ventricular size and systolic function, EF 59%. Mild to moderate concentric left ventricular hypertrophy.Grade I/IV diastolic dysfunction (abnormal relaxation filling pattern), normal to mildly elevated filling pressures. Trace tricuspid valve regurgitation. Estimated pulmonary artery peak systolic pressure 26 mmHg. Mildly increased left atrial size. There is no pericardial effusion. There are no intracardiac masses. Compared to the study from 02/11/2021, there may not be a significant change Dr Mey Carey MD FAC (Electronically Signed) Final Date: 18 June 2023 21:33 S
== END 2023-06-16 08:25 | disposition home or self-care (01) ==
LOC: RAD 08:25
PROVIDERS: PCP Nurse Practitioner Family; Visit Provider Internal Medicine Cardiovascular Disease
DX: I26.99 Other pulmonary embolism without acute cor pulmonale (principal); R06.09 Other forms of dyspnea; I51.7 Cardiomegaly
CPT/HCPCS: 93306

== ENCOUNTER → 2023-12-10 09:00 | Outpatient (BNVA) | payer MEDICARE, BC, SELFPAY | PROVIDERS: PCP Nurse Practitioner Family; Visit Provider Nurse Practitioner Family | DX: I10 Essential (primary) hypertension (principal); I26.99 Other pulmonary embolism without acute cor pulmonale; Z87.891 Personal history of nicotine dependence | CPT/HCPCS: 99214 ==

== ENCOUNTER → 2023-12-22 08:49 | Outpatient (BNVA) | payer MEDICARE, BC, SELFPAY | PROVIDERS: PCP Nurse Practitioner Family; Visit Provider Nurse Practitioner Family | DX: L57.0 Actinic keratosis (principal); L81.4 Other melanin hyperpigmentation; D22.5 Melanocytic nevi of trunk; L57.8 Other skin changes due to chronic exposure to nonionizing radiation; Z85.828 Personal history of other malignant neoplasm of skin | CPT/HCPCS: 17000; 99213 ==

== ENCOUNTER → 2024-03-24 08:26 | Outpatient (BNVA) | payer MEDICARE, BC, SELFPAY | PROVIDERS: PCP Nurse Practitioner Family; Visit Provider Nurse Practitioner Family | DX: L81.4 Other melanin hyperpigmentation (principal); L57.8 Other skin changes due to chronic exposure to nonionizing radiation; Z08 Encounter for follow-up examination after completed treatment for malignant neoplasm; Z85.828 Personal history of other malignant neoplasm of skin; D48.5 Neoplasm of uncertain behavior of skin; L57.0 Actinic keratosis | CPT/HCPCS: 11102; 17000; 99213 ==

== ENCOUNTER → 2024-06-09 10:01 | Outpatient (BNVA) | payer MEDICARE, BC, SELFPAY | PROVIDERS: PCP Nurse Practitioner Family; Visit Provider Internal Medicine Cardiovascular Disease | DX: R94.39 Abnormal result of other cardiovascular function study (principal); I26.99 Other pulmonary embolism without acute cor pulmonale; E78.2 Mixed hyperlipidemia; I10 Essential (primary) hypertension; R06.09 Other forms of dyspnea | CPT/HCPCS: 99214 ==

== ENCOUNTER → 2024-07-21 09:36 | Outpatient (BNVA) | payer MEDICARE, BC, SELFPAY | PROVIDERS: PCP Nurse Practitioner Family; Visit Provider Nurse Practitioner Family | DX: E78.2 Mixed hyperlipidemia (principal); R73.09 Other abnormal glucose; I10 Essential (primary) hypertension; R53.83 Other fatigue; Z79.899 Other long term (current) drug therapy; E55.9 Vitamin D deficiency, unspecified; Z12.5 Encounter for screening for malignant neoplasm of prostate | CPT/HCPCS: 80053; 80061; 81003; 82306; 83036; 84443; 85025; G0103 ==

== ENCOUNTER → 2024-08-02 09:12 | Outpatient (BNVA) | payer MEDICARE, BC, SELFPAY | PROVIDERS: PCP Nurse Practitioner Family; Visit Provider Nurse Practitioner Family | DX: L81.4 Other melanin hyperpigmentation (principal); L57.8 Other skin changes due to chronic exposure to nonionizing radiation; Z08 Encounter for follow-up examination after completed treatment for malignant neoplasm; Z85.828 Personal history of other malignant neoplasm of skin; L57.0 Actinic keratosis | CPT/HCPCS: 17000; 99213 ==

== ENCOUNTER → 2024-11-16 14:57 | Outpatient (BNVA) | payer MEDICARE, BC, SELFPAY | PROVIDERS: PCP Nurse Practitioner Family; Visit Provider Nurse Practitioner Family | DX: B35.4 Tinea corporis (principal); L81.4 Other melanin hyperpigmentation; L57.8 Other skin changes due to chronic exposure to nonionizing radiation; Z08 Encounter for follow-up examination after completed treatment for malignant neoplasm; Z85.828 Personal history of other malignant neoplasm of skin; L57.0 Actinic keratosis | CPT/HCPCS: 17000; 99214 ==

== ENCOUNTER → 2025-01-02 13:29 | Outpatient (BNVA) | payer MEDICARE, BC, SELFPAY | PROVIDERS: PCP Nurse Practitioner Family; Visit Provider Internal Medicine | DX: J44.89 Other specified chronic obstructive pulmonary disease (principal); Z86.711 Personal history of pulmonary embolism; Z79.01 Long term (current) use of anticoagulants; Z87.891 Personal history of nicotine dependence; J44.9 Chronic obstructive pulmonary disease, unspecified | CPT/HCPCS: 36415; 85025; 99214; Q3014 ==

== ENCOUNTER 2025-01-19 07:50 | Outpatient (CLI) | payer MEDICARE, BC, SELFPAY ==
[2025-01-19 08:07] VITALS: PULSE 72; RESP 18; O2SAT 93
== END 2025-01-19 07:51 | disposition home or self-care (01) ==
LOC: RT 07:52
PROVIDERS: PCP Nurse Practitioner Family; Visit Provider Internal Medicine
DX: J44.9 Chronic obstructive pulmonary disease, unspecified (principal); J45.909 Unspecified asthma, uncomplicated
CPT/HCPCS: 94060; 94726; 94729; J7613

== ENCOUNTER → 2025-02-09 15:03 | Outpatient (BNVA) | payer MEDICARE, BC, SELFPAY | PROVIDERS: PCP Nurse Practitioner Family; Visit Provider Internal Medicine | DX: J44.89 Other specified chronic obstructive pulmonary disease (principal); J82.83 Eosinophilic asthma; Z79.01 Long term (current) use of anticoagulants; Z86.711 Personal history of pulmonary embolism; Z87.891 Personal history of nicotine dependence | CPT/HCPCS: 99214; Q3014 ==

== ENCOUNTER → 2025-03-10 09:08 | Outpatient (BNVA) | payer MEDICARE, BC, SELFPAY | PROVIDERS: PCP Nurse Practitioner Family; Visit Provider Nurse Practitioner Family | DX: B35.4 Tinea corporis (principal); L81.4 Other melanin hyperpigmentation; L57.8 Other skin changes due to chronic exposure to nonionizing radiation; Z08 Encounter for follow-up examination after completed treatment for malignant neoplasm; Z85.828 Personal history of other malignant neoplasm of skin; L57.0 Actinic keratosis | CPT/HCPCS: 17004; 99213 ==